=== PATIENT | female | born 1980 | race African-American/Black ===

== ENCOUNTER 2016-07-02 21:22 | Emergency (ER) | payer SELFPAY ==
[~2016-07-02] VITALS: Ht 170.2 cm; Wt 62.0 kg
[2016-07-02 21:30] VITALS: TEMP 37.2; Ht 170.2 cm; Wt 62.0 kg
[2016-07-02] MEDS ORDERED: OXYCODONE/ACETAMINOPHEN 5-325 TAB PO STA (21:50)
--- NOTE | 2016-07-02 22:25 | DIAGNOSTIC IMAGING REPORT ---
RIGHT HAND MIN 3 VIEWS ROUTINE CLINICAL HISTORY: Right fifth finger pain following fall. COMPARISON: None FINDINGS: Alignment of the right hand is anatomic. No acute fracture is identified. Joint spaces are preserved. IMPRESSION: No acute fracture or dislocation of the right hand. Electronically signed by: Yvon Cain M.D. 07/02/2016 10:24 PM Dictated Date/Time: 07/02/2016 10:22 PM
--- NOTE | 2016-07-02 22:36 | DIAGNOSTIC IMAGING REPORT ---
SACRUM COCCYX MIN 2 VIEWS CLINICAL HISTORY: Fall onto metal bar; pelvis and sacrum pain COMPARISON STUDY: No previous studies for comparison. FINDINGS: The sacroiliac joints are intact. No fracture within the sacrum or coccyx identified by radiography. IMPRESSION: No fracture identified within the sacrum or coccyx by radiography. Electronically signed by: Yvon Cain M.D. 07/02/2016 10:34 PM Dictated Date/Time: 07/02/2016 10:33 PM
--- NOTE | 2016-07-02 22:36 | DIAGNOSTIC IMAGING REPORT ---
PELVIS 1 OR 2 VIEW ROUTINE CLINICAL HISTORY: fall onto metal bar; pelvis and sacrum pain COMPARISON STUDY: No previous studies for comparison. FINDINGS: The sacroiliac joints and symphysis pubis are intact. No acute fracture is identified within the pelvis or the hips. IMPRESSION: No acute fracture identified within the pelvis or hips. Electronically signed by: Yvon Cain M.D. 07/02/2016 10:35 PM Dictated Date/Time: 07/02/2016 10:35 PM
[2016-07-02] MEDS ORDERED: OXYC-57 PO (22:59)
[2016-07-02] MEDS ORDERED: PERCOCET HOME PACK PO ONE (23:00)
[2016-07-02 23:01] VITALS: BP 105/76; PULSE 60; O2SAT 96
--- NOTE | 2016-07-04 01:00 | EMERGENCY ROOM VISIT NOTE ---
ED Visit Note First contact with patient: 21:39 Chief Complaint: Buttocks pain. History of Present Illness: Ms. Diallo is a 35-year-old white female who is brought into the ED via wheelchair accompanied by female friend complaining of buttocks pain, coccyx pain and right little finger pain. Patient reports approximately 10 hours ago she was unloading boxes in her apartment. She reports she was walking backwards, tripped and fell onto a metal brittaney on her buttocks. She did not strike her head at the time of the fall , have a loss of consciousness or has not had any signs of head injury since the fall. She reports throughout the last 10 hours she has been having increasingly worse pain in both buttocks and the coccyx area. She describes this pain as a sharp shooting sensation. She rates her discomfort 8/10. Her pain is nonradiating. Her pain worsens with palpation, flexion and extension of the hip, body movements at the waist, sitting on her buttocks and palpation. She denies any alleviating factors related to the pain. She reports that she did take ibuprofen with no relief of her discomfort. Associated with her pain she reports she did have one bowel movement since her fall and she felt there might have been blood in her stools. Additionally she reports that she has noticed some pain and swelling over the right little finger; she reports she felt like she might of struck her hand when she fell earlier today but does not specifically remember the cause. Currently she is complaining over the distal aspect of the fifth metacarpal, throughout the MCP joint and into the proximal aspect of the fifth proximal phalange. She describes this as a throbbing sensation. She does not rate her pain. Pain worsens with palpation and flexion and extension of the MCP joint. Associated with her pain she does report some mild tingliness throughout the little and ring fingers. She denies any headache, dizziness, lightheadedness, abnormal neurological symptoms, neck pain, thoracic back pain, chest pain, shortness of breath, abdominal pain, nausea, vomiting, lower extremity weakness/numbness/tingling, previous pelvic/coccyx fractures. Review of Systems: As noted above in history of present illness. All body systems were reviewed and found to be negative as noted above. Past Medical History: Patient denies. Current Medications: Patient denies. Allergies to Medications: Patient denies. Social History: Patient is currently employed; she feels safe in her home environment; she denies tobacco use. Physical Examination: Vital Signs: Date Time Temp Pulse Resp B/P Pulse Ox O2 Delivery O2 Flow Rate FiO2 07/02/16 23:01 60 18 105/76 96 Room Air 07/02/16 21:30 37.2 82 16 117/73 99 Room Air GENERAL: 35-year-old female in moderate distress due to pain, nontoxic-appearing , afebrile and hemodynamically stable. NEUROLOGICAL: Awake, alert and oriented to person, place and time. Answering questions appropriately and following commands. Normal gait. Good hand eye coordination. No focal motor or sensory deficits. SKIN: Warm, dry and pink. No soft tissue trauma noted. HEENT: Atraumatic and normocephalic. BACK: No tenderness over the bony cervical, thoracic and lumbar spines. No tenderness throughout the paraspinous muscles. No CVA tenderness. Mild to moderate tenderness over the lower sacrum and coccyx bones. Do not appreciate any bony crepitus, swelling or step-offs. THORAX: Lungs sounds are clear to auscultation and equal bilaterally with symmetrical chest wall. No crepitus, tenderness, subcutaneous air or deformities noted. ABDOMEN: Flat, soft and nontender. Positive bowel sounds in all quadrants. No guarding, rigidity or organomegaly. PELVIS: Stable and nontender to compression and rock. Moderate tenderness over both ischium tuberosities. No bony deformity, bony crepitus, swelling or ecchymosis. RIGHT HAND: No gross bony deformity. Swelling and early ecchymosis over the distal fifth metacarpal and MCP joint. Moderate tenderness throughout this area without bony deformity or crepitus. Full range of motion in flexion and extension of the DIP, PIP and MCP joint. Throughout the finger the skin was warm and pink and capillary refill is brisk. LOWER EXTREMITIES: No tenderness over the hips, thighs, knees, lower legs, ankles or feet. 2+ patellar and Achilles see tendon reflexes intact and equal bilaterally. 4/5 muscle strength in flexion, extension, abduction and abduction of the hips, flexion and extension of the knees and plantar flexion and dorsiflexion of the ankles. She is able to distinguish light sensations through all dermatomes of the. Distal pulses and capillary refill are intact. ED Course: Patient is assessed as noted above. Sacrum/Coccyx X-Rays: Were read by myself and the radiologist and shows no acute fractures within the sacrum or coccyx. Pelvis: Was read by myself and the radiologist showing no acute fractures of the pelvis or hips. Right Hand X-Rays: Was read by myself and the radiologist showing no acute fractures or dislocations. Patient was given one Percocet 5/325 mg tablet by mouth for pain and ice bags for hand and sacrum/coccyx pain. Patient was educated about today's findings and instructed on her treatment plan ; she verbalized understanding and agreement with this plan. Clinical Impression: Fall. Pelvis pain. Sacrum/coccyx pain. Right hand contusion. Disposition: Patient discharged home in stable condition accompanied by female friends; prior to departure she was reassessed and subjectively reported she was feeling much better and rated her discomfort 5/10. Plan: Comfort measures were discussed with the patient including rest, ice and a sliding pain medication scale of ibuprofen, acetaminophen and [place]. Patient was encouraged to follow-up with primary care provider return to the ED for worsening/uncontrolled pain, worsening swelling or any new/concerning symptoms.
== END 2016-07-02 23:10 | disposition home or self-care (01) ==
LOC: C.EDB 21:25 → C.EDD 23:10
DX: S60.051A Contusion of right little finger without damage to nail, initial encounter (principal); W18.09XA Striking against other object with subsequent fall, initial encounter; R10.2 Pelvic and perineal pain; M53.3 Sacrococcygeal disorders, not elsewhere classified; Y93.89 Activity, other specified

== ENCOUNTER 2016-07-29 17:47 | Emergency (ER) | payer SELFPAY ==
[~2016-07-29] VITALS: Ht 170.2 cm; Wt 64.0 kg
[~2016-07-29 17:47] MED LIST: OXYC-57 PO
[2016-07-29 18:02] VITALS: BP 116/73; PULSE 71; TEMP 37.4; O2SAT 100; Ht 170.2 cm; Wt 64.0 kg
[2016-07-29] MEDS ORDERED: IBUP-1050 PO (18:03)
[2016-07-29] MEDS ORDERED: KETOROLAC TROMETHAMINE 60 MG/2 ML VIAL IM STA (18:09)
--- NOTE | 2016-07-29 19:42 | DIAGNOSTIC IMAGING REPORT ---
LUMBAR SPINE 5 VIEWS, PELVIS ONE VIEW HISTORY: low back pain from fall COMPARISON: Pelvis 07/02/2016. FINDINGS: There is no fracture. No subluxation. Moderate to space narrowing L5-S1. No fracture or dislocation within the pelvis or hips. The sacrum is intact. Bilateral sacroiliac joints are within normal limits. IMPRESSION: No fracture or subluxation within the lumbar spine. No fracture or dislocation within the pelvis or hips. Electronically signed by: Boris Milan M.D. 07/29/2016 7:40 PM Dictated Date/Time: 07/29/2016 7:37 PM
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
[2016-07-29] MEDS ORDERED: PERCOCET HOME PACK PO ONE (21:00)
== END 2016-07-29 21:50 | disposition home or self-care (01) ==
LOC: EDBD 17:47 → C.EDB 17:48
DX: M53.3 Sacrococcygeal disorders, not elsewhere classified (principal); F17.200 Nicotine dependence, unspecified, uncomplicated; Z88.8 Allergy status to other drugs, medicaments and biological substances

== ENCOUNTER 2016-08-19 01:10 | Emergency (ER) | payer SELFPAY ==
[~2016-08-19] VITALS: Ht 170.2 cm; Wt 59.7 kg
[~2016-08-19 01:10] MED LIST changes: +IBUP-1050 PO; -OXYC-57 PO
[2016-08-19] MEDS ORDERED: HALOPERIDOL LACTATE 5 MG/ML 1 ML VIAL ONE (01:13)
[2016-08-19] MEDS ORDERED: LORAZEPAM 2 MG/ML 1 ML VIAL ONE (01:14)
[2016-08-19 01:21] VITALS: Ht 170.2 cm; Wt 59.7 kg
[2016-08-19] MEDS ORDERED: LORAZEPAM 2 MG/ML 1 ML VIAL IM STA ×2 (01:21→01:42)
[2016-08-19] MEDS ORDERED: HALOPERIDOL LACTATE 5 MG/ML 1 ML VIAL IM STA (01:21)
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
[2016-08-19 02:29] LABS: PREG INTERNAL NEGATIVE QC NEG CLEAR BACKGROUND; PREG INTERNAL POSITIVE QC POS CONTROL LINE
[2016-08-19 02:31] LABS: BUN/CREATININE RATIO 6.1 (10-20); CALCIUM 8.9 mg/dl (8.5-10.1); CREATININE 0.74 mg/dl (0.60-1.20); POTASSIUM 3.6 mmol/L (3.5-5.1)
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
[2016-08-19 09:58] VITALS: BP 95/64; PULSE 83; O2SAT 93
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
== END 2016-08-19 12:05 | disposition left against medical advice (07) ==
LOC: EDBD 01:10 → C.EDB 01:14
DX: F10.920 Alcohol use, unspecified with intoxication, uncomplicated (principal); S50.312A Abrasion of left elbow, initial encounter; V28.0XXA Motorcycle driver injured in noncollision transport accident in nontraffic accident, initial encounter; Z78.1 Physical restraint status